=== PATIENT | male | born 1960 | race Caucasian/White ===

== ENCOUNTER 2017-08-05 10:56 | Emergency (ER) | payer MEDICAID ==
[~2017-08-05] VITALS: Ht 180.3 cm; Wt 76.3 kg
[2017-08-05 11:01] VITALS: BP 135/82
--- NOTE | 2017-08-05 11:06 | NUR ---
PT AMBULATES TO CHAIR D
--- NOTE | 2017-08-05 11:10 | NUR ---
57Y/M C/O BLURRY VISSION SINCE WITH HEADACHE; DENIES NVD OR DIZZINESS. HX; DM, HTN. RX; METFORMIN, LISINOPRIL, ASPIRIN. ER MD MADE AWARE OF PT STATUS.
--- NOTE | 2017-08-05 11:14 | NUR ---
Patient being evaluated by physician at bedside.
[2017-08-05 12:20] VITALS: BP 134/78
--- NOTE | 2017-08-05 12:20 | NUR ---
Patient discharged with v/s stable. Written and verbal after care instructions given and explained. Patient verbalized understanding. Ambulatory with steady gait. All questions addressed prior to discharge. Advised to follow up with PMD.
== END 2017-08-05 12:20 | disposition home or self-care (01) ==
LOC: MED 10:56
DX: H53.2 Diplopia (principal); R51 Headache; E11.9 Type 2 diabetes mellitus without complications; I10 Essential (primary) hypertension
CPT/HCPCS: 70450; 82948; 99284

== ENCOUNTER 2017-08-07 06:00 | Emergency (ER) | payer MEDICAID ==
[~2017-08-07] VITALS: Ht 170.2 cm; Wt 76.5 kg
[2017-08-07 06:05] VITALS: BP 163/80
[2017-08-07] MEDS ORDERED: DICYCLOMINE HCL LIQUID 20 MG, ALUMINUM HYD/MAG/SIMETHICONE 30 ML, LIDOCAINE VISCOUS 2% ... PO ONE ×3 (06:30)
[2017-08-07] MEDS ORDERED: ONDANSETRON 4 MG ODT PO ONE (06:50)
[2017-08-07] MEDS ORDERED: KETOROLAC 60 MG/2 ML VIAL IM ONE (06:50)
[2017-08-07 07:31] VITALS: BP 121/70
[2017-08-07] MEDS ORDERED: ASPI81CT89 PO (20:37)
[2017-08-07] MEDS ORDERED: LISI10TA11 PO (20:37)
[2017-08-07] MEDS ORDERED: ONDA8TAB PO (20:37)
[2017-08-07] MEDS ORDERED: ESOM40EC PO (20:37)
[2017-08-07] MEDS ORDERED: ATOR10TA PO (20:37)
[2017-08-07] MEDS ORDERED: FERR325E14 PO (20:37)
[2017-08-07] MEDS ORDERED: GLIP5TAB4 PO (20:37)
== END 2017-08-07 07:32 | disposition home or self-care (01) ==
LOC: MED 06:00
DX: R10.13 Epigastric pain (principal); R11.0 Nausea; E11.9 Type 2 diabetes mellitus without complications; I10 Essential (primary) hypertension
CPT/HCPCS: 96372; 99283; J1885; S0119

== ENCOUNTER 2017-08-07 18:38 | Inpatient (IN) | payer MEDICAID ==
[~2017-08-07] VITALS: Ht 180.3 cm; Wt 76.2 kg
[2017-08-07 18:44] VITALS: BP 151/87
--- NOTE | 2017-08-07 18:48 | NUR ---
EPIGASTRIC PAIN, NON RADIATING. DENIES CP OR SOB. INFORMED TO LET STAFF KNOW IF CONDITION CHANGES.
--- NOTE | 2017-08-07 18:49 | NUR ---
PT IN LOBBY.
[2017-08-07] MEDS ORDERED: KETOROLAC 60 MG/2 ML VIAL IM ONE (19:55)
[2017-08-07] MEDS ORDERED: ATOR10TA PO (20:37)
[2017-08-07] MEDS ORDERED: GLIP5TAB4 PO (20:37)
[2017-08-07] MEDS ORDERED: LISI10TA11 PO (20:37)
[2017-08-07] MEDS ORDERED: ASPI81CT89 PO (20:37)
[2017-08-07] MEDS ORDERED: FERR325E14 PO (20:37)
[2017-08-07] MEDS ORDERED: ONDA8TAB PO (20:37)
[2017-08-07] MEDS ORDERED: ESOM40EC PO (20:37)
[2017-08-07 20:39] LABS: HEMATOCRIT 51.7 % (36-52); HEMOGLOBIN 17.1 g/dL (12.0-18.0); MEAN CORPUSCULAR HEMOGLOBIN 28 pg (27-31); MEAN CORPUSCULAR HGB CONC 33 g/dL (33-37); MEAN CORPUSCULAR VOLUME 85.1 fL (80-94); PLATELET COUNT (AUTO) 205 K/uL (140-450); RED BLOOD CELL COUNT(AUTO) 6.07 MIL/uL (4.20-6.10); RED CELL DISTRIBUTION WIDTH 12.5 % (11.6-13.7); WHITE BLOOD COUNT (AUTO) 14.1 K/uL (4.8-10.8)
[2017-08-07 20:52] LABS: PROTHROMBIN TIME 11.8 secs (10.8-13.4)
[2017-08-07 20:55] LABS: LYMPHOCYTES % (MANUAL) 3 % (20-46); MONOCYTES % (MANUAL) 1 % (5-12)
--- NOTE | 2017-08-07 20:59 | NUR ---
PATIENT TO ER BED 1
[2017-08-07 21:03] LABS: ANION GAP 15.5 (8-16); CARBON DIOXIDE 28.8 mmol/L (21-32); CREATININE 1.2 mg/dL (0.7-1.3); POTASSIUM 4.3 mmol/L (3.5-5.1)
[2017-08-07 21:10] LABS: ALBUMIN 4.4 g/dL (3.4-5.0); TOTAL BILIRUBIN 4.7 mg/dL (0.0-1.0)
[2017-08-07] MEDS ORDERED: NACL 0.9% 1,000 ML IV ONE ×2 (21:15→22:00)
[2017-08-07] MEDS ORDERED: MORPHINE SULFATE 4 MG/ML SYR IVP ONE (21:20)
[2017-08-07 21:24] LABS: BILIRUBIN,URINE 1+ (NEGATIVE); BLOOD, URINE TRACE-I (NEGATIVE); LEUKOCYTE ESTERASE ,URINE NEGATIVE (NEGATIVE); NITRITE, URINE NEGATIVE (NEGATIVE); UGLUCOSE 3+ (NEGATIVE)
--- NOTE | 2017-08-07 21:29 | NUR ---
Dr. Goldstein evaluating patient at bedside.
[2017-08-07 21:32] LABS: COLOR,URINE AMBER (YELLOW)
[2017-08-07 21:41] LABS: APPEARANCE,URINE CLEAR (CLEAR)
[2017-08-07 21:48] LABS: RBC,URINE 0-5 (RARE) /HPF (0-5); WBC,URINE 0-5 (RARE) /HPF (0-5)
[2017-08-07] MEDS ORDERED: ONDANSETRON 4 MG/2 ML VIAL IVP PRN (22:00)
--- NOTE | 2017-08-07 22:02 | NUR ---
ULTRASOUND AT BEDSIDE
--- NOTE | 2017-08-07 22:25 | NUR ---
PT BROUGHT FROM ER IN [facility] FROM [place]. PT REPORT GIVEN AT BEDSIDE. AAO X4. NO S/S OF DISTRESS. PT ON RA. NO SOB. IV LINE NOTED RAC 18G PATENT, INTACT. BED LOWERED CALL LIGHT WITHIN REACH . WILL CONTINUE TO MONITOR.
--- NOTE | 2017-08-07 22:40 | NUR ---
Patient will be admitted to care of DR AMRSHALL. Admited to TELE. Will go to room 111A. Belongings list completed. Report to TOVA CUNHA.
[2017-08-07 22:58] LABS: BARBITURATE, URINE NEGATIVE ng/ml (NEG <=200); BENZODIAZEPINE, URINE NEGATIVE ng/mL (NEG <=200); CANNABINOID, URINE NEGATIVE ng/mL (NEG <=50); COCAINE, URINE NEGATIVE ng/mL (NEG <=300); OPIATE, URINE NEGATIVE ng/mL (NEG <=2000); PHENCYCLIDINE SCREEN,URINE NEGATIVE ng/mL (NEG <=25)
[2017-08-07 23:18] VITALS: BP 169/81
[2017-08-07 23:28] LABS: FREE T4 (FREE THYROXINE) 1.23 ng/dL (0.76-1.46); PHOSPHORUS 4.5 mg/dL (2.5-4.9)
[2017-08-07] MEDS ORDERED: PIPERACILLIN/TAZOBACTAM 3.375 GM VIAL IV ONE (23:40)
--- NOTE | 2017-08-08 | NUR ---
ASSESSED PT VITAL SIGNS AND MEDICATED. DR AT BEDSIDE. WILL CONTINUE TO MONITOR.
[2017-08-08] MEDS: PIPER/TAZO 3.375GM/D5W PREMIX 50 ML IV SCH ×4 (00:07→22:00)
[2017-08-08] MEDS ORDERED: DEXTROSE 50% 50 ML SYR IVP PRN (00:25)
[2017-08-08] MEDS: HYDROcodone/APAP 7.5/325 MG 1 TAB PO PRN ×2 (00:54→18:27)
--- NOTE | 2017-08-08 01:03 | NUR ---
MEDICATED PT FOR PAIN. PT COMPLAINING OF PAIN 10/01. WILL CONTINUE MONITOR.
--- NOTE | 2017-08-08 02:24 | NUR ---
ASSESSED PT. PT SLEEPING AT THIS TIME. NO SOB. NO S/S OF DISTRESS. WILL CONTINUE TO MONITOR.
[2017-08-08] MEDS: MORPHINE SULFATE 4 MG/ML SYR IVP PRN ×5 (02:44→20:11)
[2017-08-08] MEDS ORDERED: PIPERACILLIN/TAZOBACTAM 3.375 GM VIAL IV ONE (03:53)
[2017-08-08 04:00] VITALS: BP 158/88
--- NOTE | 2017-08-08 04:00 | NUR ---
PT ASLEEP NO S/S OF DISTRESS. NO SOB. WILL CONTINUE TO MONITOR.
[2017-08-08] MEDS: INSULIN LISPRO SLIDING SCALE 100 UNITS/ML VIAL SUBQ PRN ×4 (05:56→20:21)
--- NOTE | 2017-08-08 06:00 | NUR ---
PT COMPLAINING OF PAIN. WILL MEDICATE. AND CONTINUE TO MONITOR.
[2017-08-08] MEDS: BLOOD GLUCOSE MONITORING 1 DEV DEV FS SCH ×4 (06:26→20:07)
--- NOTE | 2017-08-08 07:19 | NUR ---
GAVE REPORT TO DAY SHIFT NURSE AT BEDSIDE FOR CONTINUITY OF CARE. PT ASLEEP. NO SOB. NO S/S OF DISTRESS.
--- NOTE | 2017-08-08 07:20 | NUR ---
RECEIVED REPORT FROM ROLL OPERATOR NURSE AT BEDSIDE FOR CONTINUITY OF CARE. PATIENT RESTING IN BED, AROUSABLE. AOX4. BREATHING EVEN AND UNLABORED ON ROOM AIR. PATIENT DENIES PAIN AT THE MOMENT. IV TO R AC 18G, ASYMPTOMATIC, INTACT, AND PATENT, SALINE LOCKED. PATIENT ABLE TO AMBULATE. NO SIGNS OF DISTRESS AT THIS TIME. SAFETY PRECAUTION IN PLACE, BED ON LOWEST SETTING, CALL LIGHT WITHIN REACH. WILL CONTINUE TO MONITOR PATIENT.
[2017-08-08 07:27] LABS: MAGNESIUM 1.8 mg/dL (1.8-2.4); PHOSPHORUS 2.8 mg/dL (2.5-4.9)
[2017-08-08 07:29] LABS: HEMATOCRIT 46.3 % (36-52); HEMOGLOBIN 15.5 g/dL (12.0-18.0); MEAN CORPUSCULAR HEMOGLOBIN 28 pg (27-31); MEAN CORPUSCULAR HGB CONC 33 g/dL (33-37); MEAN CORPUSCULAR VOLUME 84.2 fL (80-94); PLATELET COUNT (AUTO) 169 K/uL (140-450); RED CELL DISTRIBUTION WIDTH 12.4 % (11.6-13.7); WHITE BLOOD COUNT (AUTO) 15.4 K/uL (4.8-10.8)
[2017-08-08 07:32] LABS: ANION GAP 14.1 (8-16); CREATININE 1.1 mg/dL (0.7-1.3); POTASSIUM 4.1 mmol/L (3.5-5.1)
[2017-08-08 08:00] VITALS: BP 133/82
[2017-08-08 08:31] LABS: LYMPHOCYTES % (MANUAL) 3 % (20-46); MONOCYTES % (MANUAL) 2 % (5-12)
[2017-08-08] MEDS: PANTOPRAZOLE 40 MG TABEC PO SCH (08:51)
[2017-08-08] MEDS: LISINOPRIL 10 MG TAB PO SCH (08:51)
[2017-08-08] MEDS: ASPIRIN 81 MG TAB.CHEW PO SCH (08:51)
[2017-08-08] MEDS: DOCUSATE SODIUM 100 MG GELCAP PO SCH ×2 (08:51→20:11)
[2017-08-08] MEDS: FERROUS SULFATE 325 MG TABEC PO SCH (08:51)
[2017-08-08] MEDS: LACTOBACILLUS RHAMNOSUS GG 1 EACH CAP PO SCH (08:51)
--- NOTE | 2017-08-08 08:54 | NUR ---
ADMINISTERED ORDERED MEDICATIONS. PATIENT TOLERATED THEM WELL. FAMILY AT BEDSIDE. FAMILY C/O PAIN, WILL MEDIATE WHEN NEXT SCHEDULE MEDICATION AVAILABLE. BREATHING EVEN AND UNLABORED. NO SIGNS OF DISTRESS AT THIS TIME. SAFETY PRECAUTION IN PLACE, CALL LIGHT WITHIN REACH. WILL CONTINUE TO MONITOR PATIENT.
[2017-08-08] MEDS ORDERED: glipiZIDE 5 MG TAB PO SCH (09:00)
--- NOTE | 2017-08-08 10:01 | NUR ---
PATIENT HAS BEEN SCREENED AND CATEGORIZED MODERATE NUTRITION RISK. PATIENT WILL BE SEEN WITHIN 3-5 DAYS OF ADMISSION. 08/11/17 - 08/13/[address] Addendum: 08/08/17 at [address] DATE CORRECTION: 08/10/17 - 08/12/[address]
--- NOTE | 2017-08-08 11:05 | NUR ---
PT C/O OF PAIN 12/01. PAIN MEDICATION ADMINISTERED. PATIENT TOLERATED IT WELL. BREATHING EVEN AND UNLABORED. NO SIGNS OF DISTRESS AT THIS TIME. SAFETY PRECAUTION IN PLACE, CALL LIGHT WITHIN REACH. WILL CONTINUE TO MONITOR PATIENT.
[2017-08-08] MEDS ORDERED: CALCIUM ACETATE 667 MG TAB PO SCH (11:16)
[2017-08-08 12:00] VITALS: BP 141/86
[2017-08-08] MEDS: ACETAMINOPHEN 325 MG TAB PO PRN (12:09)
--- NOTE | 2017-08-08 12:09 | NUR ---
TEMP 100.5. TYLENOL PRN ADMINISTERED AND COOLING MEASURES IN PLACE, WILL REASSESS AND CONTINUE TO MONITOR PATIENT.
--- NOTE | 2017-08-08 12:20 | NUR ---
DR. DEMARCO IN TO ASSESS AND SPEAK TO THE PATIENT. FAMILY AT BEDSIDE. WILL AWAIT FOR HIS UPDATED ORDERS.
[2017-08-08] MEDS ORDERED: NACL 0.9% 1,000 ML IV SCH (13:10)
--- NOTE | 2017-08-08 13:30 | NUR ---
TEMP 98.9. PATIENT RESTING IN BED WITH FAMILY AT BEDSIDE. BREATHING EVEN AND UNLABORED. NO SIGNS OF DISTRESS AT THIS TIME. SAFETY PRECAUTION IN PLACE, CALL LIGHT WITHIN REACH. WILL CONTINUE TO MONITOR PATIENT.
--- NOTE | 2017-08-08 13:55 | NUR ---
PATIENT AMBULATING WITH STEADY GAIT IN HALLWAY ACCOMPANIED BY DAUGHTER AND . PATIENT SHOWS NO SIGNS OF DISTRESS OR SOB. WILL CONTINUE TO MONITOR PATIENT.
--- NOTE | 2017-08-08 14:22 | NUR ---
DR. CANCINO IN TO SEE THE PATIENT. WILL AWAIT FOR HIS UPDATED ORDERS.
[2017-08-08] MEDS: DEXT 5% / LACT RING 1,000 ML IV SCH ×2 (15:14→22:00)
[2017-08-08 16:00] VITALS: BP 123/68
--- NOTE | 2017-08-08 16:09 | NUR ---
PT C/O OF PAIN 01/01. PAIN MEDICATION ADMINISTERED. PATIENT TOLERATED IT WELL. FAMILY AT BEDSIDE, CONSENT FOR POSSIBLE ECRP WITH MAC WITH DR. CANCINO TOMORROW 08/08 SIGNED. BREATHING EVEN AND UNLABORED. NO SIGNS OF DISTRESS AT THIS TIME. SAFETY PRECAUTION IN PLACE, CALL LIGHT WITHIN REACH. WILL CONTINUE TO MONITOR PATIENT.
--- NOTE | 2017-08-08 18:10 | NUR ---
PT C/O OF PAIN 10/01. PAIN MEDICATION ADMINISTERED. PATIENT TOLERATED IT WELL. BREATHING EVEN AND UNLABORED. NO SIGNS OF DISTRESS AT THIS TIME. SAFETY PRECAUTION IN PLACE, CALL LIGHT WITHIN REACH. WILL CONTINUE TO MONITOR PATIENT.
--- NOTE | 2017-08-08 19:30 | NUR ---
REPORT GIVEN TO SENIOR INTERNAL AUDITOR NURSE AT BEDSIDE FOR CONTINUITY OF CARE. PATIENT IN STABLE CONDITION.
--- NOTE | 2017-08-08 19:30 | NUR ---
PATIENT REPORT RECEIVED FROM MORNING NURSE AT BEDSIDE. PATIENT IS AWAKE ALERT AND ORIENTED. NO SIGNS AND SYMPTOMS OF DISTRESS NOTED. PATIENT IS ON ROOM AIR. IV SITE NOTED ON RIGHT AC, IVF INFUSING WELL. PLAN OF CARE DISCUSSED WITH PATIENT AND FAMILY. QUESTIONS ANSWERED. BED IN LOWEST POSITION, SIDE RAILS UP AND CALL LIGHT WITHIN REACH. WILL CONTINUE TO MONITOR.
[2017-08-08 20:00] VITALS: BP 129/76
--- NOTE | 2017-08-08 21:00 | NUR ---
CALLED PHARMACY TO VERIFY COMPATIBILITY OF ZOSYN AND D5 WITH LR. PHARMACY SAID IT IS NOT RECOMMENDED. WILL PIGGYBACK ZOSYN TO NS.
--- NOTE | 2017-08-08 21:30 | NUR ---
MEDICATION EDUCATION GIVEN. PATIENT VERBALIZED UNDERSTANDING. MEDICATIONS GIVEN ORDERED. PATIENT TOLERATED WELL. WILL CONTINUE TO MONITOR.
[2017-08-09] VITALS: BP 145/81
--- NOTE | 2017-08-09 | NUR ---
CHECKED ON PATIENT. PATIENT IS ASLEEP. NO SIGNS AND SYMPTOMS OF DISTRESS NOTED. BREATHING EVEN AND UNLABORED. WILL CONTINUE TO MONITOR.
--- NOTE | 2017-08-09 02:00 | NUR ---
CHECKED ON PATIENT. PATIENT IS ASLEEP. NO SIGNS AND SYMPTOMS OF DISTRESS NOTED. BREATHING EVEN AND UNLABORED. WILL CONTINUE TO MONITOR.
[2017-08-09] MEDS: DEXT 5% / LACT RING 1,000 ML IV SCH ×2 (03:45→10:25)
--- NOTE | 2017-08-09 04:00 | NUR ---
CHECKED ON PATIENT. PATIENT IS ASLEEP. NO SIGNS AND SYMPTOMS OF DISTRESS NOTED. BREATHING EVEN AND UNLABORED. WILL CONTINUE TO MONITOR.
[2017-08-09] MEDS: PIPER/TAZO 3.375GM/D5W PREMIX 50 ML IV SCH ×3 (04:54→21:08)
[2017-08-09] MEDS: MORPHINE SULFATE 4 MG/ML SYR IVP PRN ×3 (05:01→21:01)
[2017-08-09] MEDS: INSULIN LISPRO SLIDING SCALE 100 UNITS/ML VIAL SUBQ PRN ×4 (05:40→21:17)
--- NOTE | 2017-08-09 06:30 | NUR ---
PATIENT'S DAUGHTER CALLED. UPDATED HER ON HER FATHER'S CONDITION
[2017-08-09] MEDS: BLOOD GLUCOSE MONITORING 1 DEV DEV FS SCH ×4 (06:43→21:14)
[2017-08-09 07:08] LABS: HEMATOCRIT 42.4 % (36-52); HEMOGLOBIN 14.2 g/dL (12.0-18.0); MEAN CORPUSCULAR HEMOGLOBIN 29 pg (27-31); MEAN CORPUSCULAR HGB CONC 34 g/dL (33-37); MEAN CORPUSCULAR VOLUME 85.5 fL (80-94); PLATELET COUNT (AUTO) 144 K/uL (140-450); RED BLOOD CELL COUNT(AUTO) 4.96 MIL/uL (4.20-6.10); RED CELL DISTRIBUTION WIDTH 12.8 % (11.6-13.7); WHITE BLOOD COUNT (AUTO) 16.3 K/uL (4.8-10.8)
[2017-08-09 07:14] LABS: ANION GAP 10.6 (8-16); CARBON DIOXIDE 28.4 mmol/L (21-32); CREATININE 1.3 mg/dL (0.7-1.3)
--- NOTE | 2017-08-09 07:15 | NUR ---
PATIENT REPORT GIVEN TO MORNING NURSE AT BEDSIDE FOR CONTINUITY OF CARE. PATIENT IS IN STABLE CONDITION.
--- NOTE | 2017-08-09 07:15 | NUR ---
RECEIVED BEDSIDE REPORT FROM NIGHTSHIFT NURSE AT BEDSIDE. PATIENT IS ALERT AND ORIENTED X4. PATIENT DOES NOT PRESENT WITH PAIN AT THIS TIME. PATIENT IN SEMI-FOWLERS POSITION WITH NO SIGNS OF RESPIRATORY DISTRESS OR RESPIRATORY DEPRESSION. PATIENT HAS AN IV NOTED ON HIS RIGHT AC 18G. UPDATED BOARD IN PATIENT'S ROOM. PUT CALL LIGHT WITHIN REACH. PATIENT AWARE OF HIS PROCEDURE TODAY. ENCOURAGED PATIENT TO CALL IF HE NEEDS HELP WITH ANYTHING. WILL CONTINUE TO MONITOR PATIENT.
[2017-08-09 07:32] LABS: MAGNESIUM 1.8 mg/dL (1.8-2.4); PHOSPHORUS 1.8 mg/dL (2.5-4.9)
[2017-08-09 07:43] LABS: LYMPHOCYTES % (MANUAL) 6 % (20-46); MONOCYTES % (MANUAL) 4 % (5-12)
[2017-08-09 08:00] VITALS: BP 143/80
[2017-08-09] MEDS: DOCUSATE SODIUM 100 MG GELCAP PO SCH ×2 (08:59→21:05)
[2017-08-09] MEDS: LACTOBACILLUS RHAMNOSUS GG 1 EACH CAP PO SCH (09:00)
--- NOTE | 2017-08-09 09:00 | NUR ---
PATIENT RESTING AT THIS TIME. NO RESPIRATORY DISTRESS OR RESPIRATORY DEPRESSION. WILL CONTINUE TO MONITOR PATIENT.
[2017-08-09] MEDS: PANTOPRAZOLE 40 MG TABEC PO SCH (09:01)
[2017-08-09] MEDS: SENNA 8.6 MG TAB PO SCH (09:01)
[2017-08-09] MEDS: LISINOPRIL 10 MG TAB PO SCH (09:01)
[2017-08-09] MEDS: ASPIRIN 81 MG TAB.CHEW PO SCH (09:01)
[2017-08-09] MEDS: FERROUS SULFATE 325 MG TABEC PO SCH (09:02)
[2017-08-09] MEDS: LACTATED RINGERS 1,000 ML IV SCH (11:00)
--- NOTE | 2017-08-09 11:50 | NUR ---
PATIENT RESTING AT THIS TIME. PATIENT'S FAMILY MEMBERS ARE AT BEDSIDE. NO COMPLAINTS OF PAIN AT THIS TIME. NO RESPIRATORY DISTRESS OR RESPIRATORY DEPRESSION. WILL CONTINUE TO MONITOR PATIENT.
[2017-08-09] MEDS: HYDROcodone/APAP 7.5/325 MG 1 TAB PO PRN ×2 (13:40→23:53)
--- NOTE | 2017-08-09 14:09 | NUR ---
PATIENT RESTING IN BED. PATIENT'S FAMILY IS AT BEDSIDE. NO RESPIRATORY DEPRESSION OR DISTRESS. WILL CONTINUE TO MONITOR PATIENT.
--- NOTE | 2017-08-09 14:45 | NUR ---
PATIENT LEFT WITH O.R. NURSES VIA BED. PATIENT LEFT IN STABLE CONDITION.
[2017-08-09] MEDS ORDERED: PROPOFOL 200 MG/20 ML VIAL IV ONE (15:34)
[2017-08-09] MEDS ORDERED: fentaNYL 0.05 MG/ML VIAL ONE (15:36)
[2017-08-09] MEDS ORDERED: MIDAZOLAM 2 MG/2 ML VIAL ONE (15:36)
[2017-08-09 16:24] LABS: ALBUMIN 2.9 g/dL (3.4-5.0); BILIRUBIN,DIRECT 3.3 mg/dL (0.0-0.3); TOTAL BILIRUBIN 5.4 mg/dL (0.0-1.0)
--- NOTE | 2017-08-09 17:15 | NUR ---
PATIENT ARRIVED BACK FROM THE O.R. IN STABLE CONDITION. RECEIVED REPORT AT BEDSIDE. PATIENT VITAL SIGNS IN STABLE CONDITION.
[2017-08-09 17:30] VITALS: BP 146/81
--- NOTE | 2017-08-09 19:46 | NUR ---
GAVE REPORT TO NIGHTSHIFT NURSE AT BEDSIDE. PATIENT IN STABLE CONDITION.
[2017-08-09 20:30] VITALS: BP 161/79
--- NOTE | 2017-08-09 20:30 | NUR ---
SEEN PT AWAKE, ALERT IN BED SPEAKS MOSTLY CZECH. FAMILY AT BEDSIDE. INITIAL ASSESSMENT DONE. VITAL SIGNS CHECKED. PT HAS WEYN=518.1 PT STATES HE HAS PAIN. WILL MEDICATE FOR PAIN ORDERED. SAFETY ENSURED. CALL LIGHT W/IN REACH.
--- NOTE | 2017-08-09 21:01 | NUR ---
ICE PACK APPLIED ON PT'S UNDERARM. EXTRA COVER (BLANKET) REMOVED. INSTRUCTED FAMILY NOT TO COVER PT FOR NOW SINCE PT HAS FEVER. FAMILY VERBALIZED UNDERSTANDING. PT MEDICATED FOR PAIN ORDERED. TEACHINGS PROVIDED. PT'S DAUGHTER SAID "CAN YOU MAKE SURE TO ASK MY DAD IF HE'S IN PAIN BECAUSE HE WON'T CALL FOR PAIN MEDICINE." REASSURED PT'S DAUGHTER THAT PT WILL ME MEDICATED FOR HIS PAIN. BLOOD SUGAR CHECKED:171. WILL COVER W/ INSULIN. PT DENIES ANY OTHER NEEDS.
[2017-08-09] MEDS: ACETAMINOPHEN 325 MG TAB PO PRN (21:02)
--- NOTE | 2017-08-09 22:10 | NUR ---
SEEN PT ASLEEP. TEMP RECHECKED:100.7 ICE PACK REPLACED. PT WANTS TO USE BATHROOM. PT GIVEN URINAL TO USE. URINAL EMPTIED W/ 400ML DARK YELLOW URINE. PT DENIES ANY NEEDS. BED ALARM ON.
--- NOTE | 2017-08-09 23:53 | NUR ---
SEEN PT AWAKE. PT'S TEMP RECHECKED:98.7 BP RECHECKED:161/78. PT STATES HE HAS PAIN. PT GIVEN NORCO ORDERED. TEACHINGS PROVIDED. WILL CALL MD REGARDING PT'S BP.
[2017-08-09 23:56] VITALS: BP 161/78
--- NOTE | 2017-08-10 00:06 | NUR ---
PT'S DAUGHTER CALLED ASKING HOW PT IS DOING. UPDATED PT ON PT'S CONDITION.
--- NOTE | 2017-08-10 00:08 | NUR ---
CALLED AND SPOKE TO DR KENDRICK REGARDING PT'S BP. SHE SAID, "I'LL GO TAKE A LOOK ON PT'S MEDICATION."
--- NOTE | 2017-08-10 00:42 | NUR ---
SPOKE TO DR KENDRICK IF SHE CHECKED ON PT'S MEDS ALREADY. SHE SAID "HIS BP IS NOT THAT CRITICAL BUT I'LL TAKE A LOOK ON HIS MEDS RIGHT NOW." WILL AWAIT FOR ORDERS.
[2017-08-10] MEDS ORDERED: LISINOPRIL 10 MG TAB PO SCH (00:45)
[2017-08-10] MEDS: LACTATED RINGERS 1,000 ML IV SCH ×4 (01:05→18:20)
[2017-08-10] MEDS: MORPHINE SULFATE 4 MG/ML SYR IVP PRN ×4 (01:05→18:20)
[2017-08-10] MEDS: HYDROcodone/APAP 7.5/325 MG 1 TAB PO PRN ×3 (03:55→22:03)
[2017-08-10 04:00] VITALS: BP 157/83
--- NOTE | 2017-08-10 04:05 | NUR ---
PT ASLEEP. VITAL SIGNS CHECKED AND WNL. SAFETY ENSURED.
[2017-08-10] MEDS: PIPER/TAZO 3.375GM/D5W PREMIX 50 ML IV SCH ×3 (05:23→21:39)
--- NOTE | 2017-08-10 06:35 | NUR ---
AWAKEN PT. BLOOD SUGAR CHECKED;174. WILL COVER W/ INSULIN.
[2017-08-10] MEDS: BLOOD GLUCOSE MONITORING 1 DEV DEV FS SCH ×4 (06:47→21:29)
[2017-08-10] MEDS: INSULIN LISPRO SLIDING SCALE 100 UNITS/ML VIAL SUBQ PRN ×2 (06:47→21:33)
--- NOTE | 2017-08-10 07:10 | NUR ---
REPORT GIVEN TO DAYSHIFT NURSE.
--- NOTE | 2017-08-10 07:11 | NUR ---
RECEIVED REPORT FROM ORTHOPHOTO TECH/DRAFTSMAN NURSE AT BEDSIDE FOR CONTINUITY OF CARE. PATIENT RESTING IN BED, AROUSABLE. AOX4. BREATHING EVEN AND UNLABORED ON ROOM AIR. PATIENT DENIES PAIN AT THE MOMENT. IV TO R AC 18G, ASYMPTOMATIC, INTACT, AND PATENT, SALINE LOCKED. PATIENT ABLE TO AMBULATE. NO SIGNS OF DISTRESS AT THIS TIME. SAFETY PRECAUTION IN PLACE, BED ON LOWEST SETTING, CALL LIGHT WITHIN REACH. WILL CONTINUE TO MONITOR PATIENT.
[2017-08-10 07:15] LABS: BASOPHILS # (AUTO) 0.1 K/uL (0.00-0.22); BASOPHILS % (AUTO) 0.6 % (0.0-2.0); EOSINOPHILS % (AUTO) 0.1 % (0.0-4.0); HEMATOCRIT 37.5 % (36-52); HEMOGLOBIN 12.7 g/dL (12.0-18.0); LYMPHOCYTES # (AUTO) 0.3 K/uL (2.0-11.5); LYMPHOCYTES % (AUTO) 2.6 % (20.5-51.1); MEAN CORPUSCULAR HEMOGLOBIN 28 pg (27-31); MEAN CORPUSCULAR HGB CONC 34 g/dL (33-37); MEAN CORPUSCULAR VOLUME 83.2 fL (80-94); MONOCYTES # (AUTO) 0.5 K/uL (0.8-1.0); MONOCYTES % (AUTO) 4.6 % (1.7-9.3); NEUTROPHILS # (AUTO) 9.8 K/uL (1.8-7.7); NEUTROPHILS % (AUTO) 92.1 % (42.2-75.2); PLATELET COUNT (AUTO) 149 K/uL (140-450); RED BLOOD CELL COUNT(AUTO) 4.51 MIL/uL (4.20-6.10); RED CELL DISTRIBUTION WIDTH 13.4 % (11.6-13.7); WHITE BLOOD COUNT (AUTO) 10.7 K/uL (4.8-10.8)
[2017-08-10 07:35] LABS: MAGNESIUM 2.2 mg/dL (1.8-2.4); PHOSPHORUS 1.2 mg/dL (2.5-4.9)
[2017-08-10 07:38] LABS: ANION GAP 11.7 (8-16); CARBON DIOXIDE 25.8 mmol/L (21-32); CREATININE 0.8 mg/dL (0.7-1.3); POTASSIUM 3.5 mmol/L (3.5-5.1)
[2017-08-10 08:00] VITALS: BP 168/95
[2017-08-10] MEDS: DOCUSATE SODIUM 100 MG GELCAP PO SCH ×2 (08:59→21:12)
[2017-08-10] MEDS: ASPIRIN 81 MG TAB.CHEW PO SCH (08:59)
[2017-08-10] MEDS: LACTOBACILLUS RHAMNOSUS GG 1 EACH CAP PO SCH (09:00)
[2017-08-10] MEDS: FERROUS SULFATE 325 MG TABEC PO SCH (09:00)
[2017-08-10] MEDS: PANTOPRAZOLE 40 MG TABEC PO SCH (09:00)
[2017-08-10] MEDS: SENNA 8.6 MG TAB PO SCH (09:00)
--- NOTE | 2017-08-10 09:00 | NUR ---
ADMINISTERED ORDERED MEDICATION AND MORPHINE PRN FOR PT'S PAIN. PATIENT TOLERATED THEM WELL. FAMILY AT BEDSIDE, PLAN OF CARE DISCUSSED WITH PATIENT AND FAMILY MEMBERS. THEY VERBALIZED UNDERSTANDING. NO SIGNS OF DISTRESS NOTED. PATIENT MEDICATED FOR PAIN. SAFETY PRECAUTION IN PLACE, CALL LIGHT WITHIN REACH, WILL CONTINUE TO MONITOR PATIENT.
[2017-08-10] MEDS: LISINOPRIL 10 MG TAB PO SCH (09:01)
--- NOTE | 2017-08-10 10:55 | NUR ---
DR. DEMARCO INFORMED OF PATIENT'S LOW CALCIUM AND LOW PHOSPHORUS LEVEL. WILL AWAIT FOR HIS NEW ORDERS.
[2017-08-10] MEDS ORDERED: SODIUM PHOS / POTASSIUM PHOS 1 PKT PDR PO SCH (11:08)
--- NOTE | 2017-08-10 12:05 | NUR ---
ADMINISTERED ORDERED MEDICATION. PATIENT TOLERATED IT WELL. FAMILY AT BEDSIDE. BLOOD SUGAR 145, NO COVERAGE NEEDED. NO SIGNS OF DISTRESS NOTED. PATIENT STATED PAIN IS "TOLERABLE", NO NEED FOR PAIN MEDICATION AT THIS TIME. SAFETY PRECAUTION IN PLACE, CALL LIGHT WITHIN REACH, WILL CONTINUE TO MONITOR PATIENT.
--- NOTE | 2017-08-10 12:20 | NUR ---
PATIENT'S BLOOD PRESSURE 168/90, HR 86. INFORMED DR. DEMARCO, WILL AWAIT HIS NEW ORDERS. PATIENT CURRENTLY RESTING IN BED, FAMILY AT BEDSIDE. NO SIGNS OF DISTRESS NOTED. PATIENT MEDICATED FOR PAIN. SAFETY PRECAUTION IN PLACE, CALL LIGHT WITHIN REACH, WILL CONTINUE TO MONITOR PATIENT.
[2017-08-10] MEDS ORDERED: LISINOPRIL 20 MG TAB PO SCH (13:38)
--- NOTE | 2017-08-10 14:35 | NUR ---
ADMINISTERED ORDERED MEDICATION AND MORPHINE PRN FOR PT'S PAIN. PATIENT TOLERATED THEM WELL. FAMILY AT BEDSIDE, NO SIGNS OF DISTRESS NOTED. PATIENT MEDICATED FOR PAIN. SAFETY PRECAUTION IN PLACE, CALL LIGHT WITHIN REACH, WILL CONTINUE TO MONITOR PATIENT.
[2017-08-10 16:00] VITALS: BP 170/90
--- NOTE | 2017-08-10 16:05 | NUR ---
PATIENT'S BLOOD PRESSURE 170/90, HR 92. INFORMED DR. DEMARCO, WILL AWAIT HIS NEW ORDERS. PATIENT CURRENTLY RESTING IN BED, FAMILY AT BEDSIDE. NO SIGNS OF DISTRESS NOTED. PATIENT C/O PAIN, WILL ASSESS AND MEDICATE. SAFETY PRECAUTION IN PLACE, CALL LIGHT WITHIN REACH, WILL CONTINUE TO MONITOR PATIENT.
[2017-08-10] MEDS ORDERED: METOPROLOL 25 MG TAB PO SCH (16:26)
[2017-08-10] MEDS: SODIUM PHOS / POTASSIUM PHOS 1 PKT PDR PO SCH ×2 (16:46→21:14)
--- NOTE | 2017-08-10 16:46 | NUR ---
ADMINISTERED ORDERED MEDICATION AND NORCO PRN FOR PT'S PAIN. PATIENT TOLERATED THEM WELL. FAMILY AT BEDSIDE, NO SIGNS OF DISTRESS NOTED. PATIENT MEDICATED FOR PAIN. SAFETY PRECAUTION IN PLACE, CALL LIGHT WITHIN REACH, WILL CONTINUE TO MONITOR PATIENT.
--- NOTE | 2017-08-10 17:10 | NUR ---
PATIENT AMBULATED 100 FEET OUT OF HIS ROOM AND BACK INTO HIS ROOM ACCOMPANIED BY HIS FAMILY MEMBERS. PATIENT SHOWS NO SIGN OF DISTRESS. WILL CONTINUE TO MONITOR PATIENT.
--- NOTE | 2017-08-10 17:35 | NUR ---
DR. DORANTES IN TO ASSESS AND SPEAK TO THE PATIENT. LAWRENCE CONNOR PLANNED FOR TOMORROW AT 3:30. CONSENT OBTAINED. FAMILY AT BEDSIDE. FAMILY AND PATIENT VERBALIZED UNDERSTANDING FOR THE PLANNED PROCEDURE TOMORROW.
--- NOTE | 2017-08-10 18:33 | NUR ---
ADMINISTERED ORDERED MEDICATION AND MORPHINE PRN FOR PT'S 10/10 ABD AND BACK PAIN. PATIENT TOLERATED THEM WELL. FAMILY AT BEDSIDE, NO SIGNS OF DISTRESS NOTED. PATIENT MEDICATED FOR PAIN. PATIENT BP 170/91, HR 88. DR. DEMARCO AWARE. NEW ORDER IN FOR KPAD FOR BACK PAIN, NURSING GLUER MACHINE OPERATOR WAS CALLED ABOUT KPAD. SAFETY PRECAUTION IN PLACE, CALL LIGHT WITHIN REACH, WILL CONTINUE TO MONITOR PATIENT.
--- NOTE | 2017-08-10 19:18 | NUR ---
PATIENT REPORT GIVEN TO SPICE CLEANER NURSE AT BEDSIDE FOR CONTINUITY OF CARE. PATIENT IN STABLE CONDITION. ENDORSED KPAD INQUIRY TO SPICE CLEANER NURSE. ALSO SPOKE TO NURSING GLOBAL LOGISTICS ANALYST TO REMIND HER.
--- NOTE | 2017-08-10 19:19 | NUR ---
RECD. RESTING IN BED, AWAKE, A/OX4. RESPIRATION EVEN AND UNLABORED. IV OF LR AT 150 ML/HR INFUSING, RIGHT AC G18. ABDOMEN SLIGHTLY FIRM, STATED ABLE TO PASS GAS, NO BM YET, WILL GIVE COLACE TONIGHT. ABLE TO AMBULATE INDEPENDENTLY TO BR. PLAN OF CARE FOR THE SHIFT DISCUSSED WITH PATIENT AND FAMILY. VERBALIZED UNDERSTANDING. DENIES PAIN AT THIS TIME.
--- NOTE | 2017-08-10 20:00 | NUR ---
Patient's Plan of Care was discussed and reviewed with DISPLAY TRIMMER: INNA SHARP
[2017-08-10] MEDS: METOPROLOL 25 MG TAB PO SCH (21:13)
[2017-08-10] MEDS: CALCIUM CARB/VIT-D 500 MG/200 IU 1 TAB PO SCH (21:13)
--- NOTE | 2017-08-10 21:14 | NUR ---
DUE PO MEDICATIONS GIVEN. SNACK GIVEN FOR THE NIGHT BUT REFUSED TO EAT, WANTS TO EAT LATER.
--- NOTE | 2017-08-10 21:30 | NUR ---
K PAD APPLIED AT THE BACK FOR BACK PAIN.
--- NOTE | 2017-08-10 23:30 | NUR ---
NPO PAST MIDNIGHT, VERBALIZED UNDERSTANDING.
[2017-08-10] MEDS ORDERED: TEMAZEPAM 15 MG CAP PO PRN (23:45)
[2017-08-11] VITALS: BP 144/82
--- NOTE | 2017-08-11 00:30 | NUR ---
STATED K PAD DOES NOT HELP, STILL TOO HOT EVEN IF COVERED WITH BEDSHEET. TAKEN OFF PATIENT.
[2017-08-11] MEDS: LACTATED RINGERS 1,000 ML IV SCH ×3 (00:45→12:44)
--- NOTE | 2017-08-11 01:13 | NUR ---
UNABLE TO SLEEP, MEDICATED WITH RESTORIL ORDERED.
--- NOTE | 2017-08-11 02:13 | NUR ---
SLEEPING IN BED.
--- NOTE | 2017-08-11 03:30 | NUR ---
AWAKE, STATED SLEEP ONLY A LITTLE.
[2017-08-11 03:45] VITALS: BP 162/79
[2017-08-11] MEDS: MORPHINE SULFATE 4 MG/ML SYR IVP PRN ×3 (03:55→12:44)
--- NOTE | 2017-08-11 04:25 | NUR ---
SLEEPING COMFORTABLY IN BED, AFTER PAIN MEDICATION.
[2017-08-11] MEDS: PIPER/TAZO 3.375GM/D5W PREMIX 50 ML IV SCH ×3 (05:18→21:43)
--- NOTE | 2017-08-11 05:50 | NUR ---
SPOKE WITH DR. DORANTES, INQUIRED PATIENT IS NOT YET IN THE DESK TOP, NO SCHEDULE FOR LAP CHOLECYSTECTOMY, WILL CALL OR FOR SCHEDULING.
[2017-08-11] MEDS: BLOOD GLUCOSE MONITORING 1 DEV DEV FS SCH ×4 (06:00→21:47)
--- NOTE | 2017-08-11 06:00 | NUR ---
INFORMED DR. MALCOLM, PATIENT BS - 159, IF PATIENT CAN BE GIVEN INSULIN COVERAGE. STATED NO COVERAGE.
[2017-08-11 06:38] LABS: BASOPHILS % (AUTO) 0.1 % (0.0-2.0); EOSINOPHILS % (AUTO) 0.3 % (0.0-4.0); HEMATOCRIT 36.5 % (36-52); HEMOGLOBIN 12.5 g/dL (12.0-18.0); LYMPHOCYTES # (AUTO) 0.4 K/uL (2.0-11.5); MEAN CORPUSCULAR HEMOGLOBIN 28 pg (27-31); MEAN CORPUSCULAR HGB CONC 34 g/dL (33-37); MONOCYTES # (AUTO) 0.9 K/uL (0.8-1.0); NEUTROPHILS # (AUTO) 9.6 K/uL (1.8-7.7); NEUTROPHILS % (AUTO) 87.6 % (42.2-75.2); PLATELET COUNT (AUTO) 169 K/uL (140-450); RED CELL DISTRIBUTION WIDTH 13.1 % (11.6-13.7); WHITE BLOOD COUNT (AUTO) 10.9 K/uL (4.8-10.8)
--- NOTE | 2017-08-11 07:15 | NUR ---
ENDORSED TO AM NURSE FOR CONTINUITY OF CARE, FOR LAP CHOLECYSTECTOMY TODAY. CONDITION REMAIN STABLE.
--- NOTE | 2017-08-11 07:16 | NUR ---
RECEIVED REPORT FROM DUST HANDLER NURSE AT BEDSIDE FOR CONTINUITY OF CARE. PATIENT RESTING IN BED, AROUSABLE. AOX4. BREATHING EVEN AND UNLABORED ON ROOM AIR. PATIENT DENIES PAIN AT THE MOMENT. IV TO R AC 18G, ASYMPTOMATIC, INTACT, AND PATENT, SALINE LOCKED. PATIENT ABLE TO AMBULATE. NO SIGNS OF DISTRESS AT THIS TIME. SAFETY PRECAUTION IN PLACE, BED ON LOWEST SETTING, CALL LIGHT WITHIN REACH. WILL CONTINUE TO MONITOR PATIENT.
[2017-08-11 07:39] LABS: ANION GAP 12.5 (8-16); CARBON DIOXIDE 24.3 mmol/L (21-32); CREATININE 0.7 mg/dL (0.7-1.3); POTASSIUM 3.8 mmol/L (3.5-5.1)
[2017-08-11 07:42] LABS: MAGNESIUM 2.2 mg/dL (1.8-2.4); PHOSPHORUS 1.3 mg/dL (2.5-4.9)
[2017-08-11 08:00] VITALS: BP 175/96
[2017-08-11] MEDS: SODIUM PHOS / POTASSIUM PHOS 1 PKT PDR PO SCH ×4 (08:30→21:46)
[2017-08-11] MEDS: SENNA 8.6 MG TAB PO SCH (08:30)
[2017-08-11] MEDS: LACTOBACILLUS RHAMNOSUS GG 1 EACH CAP PO SCH (08:30)
--- NOTE | 2017-08-11 08:30 | NUR ---
ADMINISTERED ORDERED MEDICATIONS. PATIENT TOLERATED THEM WELL. PATIENT ALSO MEDICATED FOR 10/10 ABD AND BACK PAIN. FAMILY AT BEDSIDE. NO SIGN OF DISTRESS NOTED, PATIENT MEDICATED FOR PAIN. SAFETY PRECAUTION IN PLACE, CALL LIGHT WITHIN REACH, WILL CONTINUE TO MONITOR PATIENT.
[2017-08-11] MEDS: PANTOPRAZOLE 40 MG TABEC PO SCH (08:31)
[2017-08-11] MEDS: LISINOPRIL 10 MG TAB PO SCH (08:31)
[2017-08-11] MEDS: METOPROLOL 25 MG TAB PO SCH ×2 (08:31→21:45)
[2017-08-11] MEDS: DOCUSATE SODIUM 100 MG GELCAP PO SCH ×2 (08:31→21:45)
[2017-08-11] MEDS: FERROUS SULFATE 325 MG TABEC PO SCH (08:31)
[2017-08-11] MEDS: CALCIUM CARB/VIT-D 500 MG/200 IU 1 TAB PO SCH ×2 (08:32→21:45)
[2017-08-11] MEDS: ASPIRIN 81 MG TAB.CHEW PO SCH (08:32)
[2017-08-11] MEDS: HYDROcodone/APAP 7.5/325 MG 1 TAB PO PRN (09:45)
--- NOTE | 2017-08-11 09:45 | NUR ---
PATIENT MEDICATED FOR 6/10 ABD AND BACK PAIN. FAMILY AT BEDSIDE. NO SIGN OF DISTRESS NOTED, BREATHING EVEN AND UNLABORED. PATIENT MEDICATED FOR PAIN. SAFETY PRECAUTION IN PLACE, CALL LIGHT WITHIN REACH, WILL CONTINUE TO MONITOR PATIENT.
[2017-08-11 11:15] LABS: ALBUMIN 2.5 g/dL (3.4-5.0); BILIRUBIN,DIRECT 7.1 mg/dL (0.0-0.3); TOTAL BILIRUBIN 9.2 mg/dL (0.0-1.0)
--- NOTE | 2017-08-11 12:43 | NUR ---
ADMINISTERED ORDERED MEDICATION. PATIENT TOLERATED THEM WELL. FAMILY AT BEDSIDE. BLOOD SUGAR 167, NO COVERAGE GIVEN BECAUSE PATIENT IS NPO. PATIENT ALSO MEDICATED FOR 10/10 ABD AND BACK PAIN. NO SIGNS OF DISTRESS NOTED. BREATHING EVEN AND UNLABORED. SAFETY PRECAUTION IN PLACE, CALL LIGHT WITHIN REACH, WILL CONTINUE TO MONITOR PATIENT.
--- NOTE | 2017-08-11 15:02 | NUR ---
08/11/17 RD INITIAL ASSESSMENT COMPLETED PLEASE REFER TO NUTRITION ASSESSMENT UNDER CARE ACTIVITY FOR ESTIMATED NUTRITIONAL NEEDS. 1. CONTINUE NPO MEDICALLY APPROPRIATE 2. IF AND WHEN IT IS MEDICALLY APPROPRIATE, ADVANCE TO A CCHO 60 GM AND CARDIAC DIET. 3. PROVIDED PT WITH PANCREATITIS NUTRITION THERAPY. 4. RD TO FOLLOW-UP 3-5 DAYS, MODERATE RISK ARLENE REYNOLDS RD
[2017-08-11] MEDS: BUPIVACAINE-MPF 0.25% 30 ML VIAL INJ ONE ×2 (15:18→18:15)
--- NOTE | 2017-08-11 15:20 | NUR ---
RECEIVED PHONE CALL FROM SURGERY, DR. DORANTES WILL NOT BE DOING THE PATIENT'S LAP CHOLY, DR. ROSE WILL BE DOING IT AT 1530. PATIENT INFORMED OF THIS FACT, NEW CONSENT FORM OBTAINED. PATIENT IN STABLE CONDITION, NO SIGNS OF DISTRESS OR SOB NOTED. PATIENT STATES ABD AND BACK PAIN 10/01, REFUSED PAIN MEDICATION AT THE MOMENT IN PREPARATION FOR SURGERY. PATIENT NPO SINCE MIDNIGHT OF 08/11/17. SAFETY PRECAUTION IN PLACE, CALL LIGHT WITHIN REACH, WILL CONTINUE TO MONITOR PATIENT AND WAIT FOR OR NURSES COME TO TAKE PATIENT TO SURGERY.
--- NOTE | 2017-08-11 15:45 | NUR ---
2 SURGERY RNS CAME AND WHEELED THE PATIENT TO SURGERY VIA BED. PATIENT IN STABLE CONDITION.
[2017-08-11] MEDS ORDERED: DESFLURANE 240 ML BTL INH ONE (15:46)
[2017-08-11] MEDS ORDERED: SUCCINYLCHOLINE CHLORIDE 200 MG/10 ML VIAL IVP ONE (15:46)
[2017-08-11] MEDS ORDERED: GLYCOPYRROLATE 0.2 MG/ML VIAL ONE (15:46)
[2017-08-11] MEDS ORDERED: NEOSTIGMINE 1:1000 10 MG/10 ML VIAL ONE (15:46)
[2017-08-11] MEDS ORDERED: DEXAMETHASONE 4 MG/ML VIAL ONE (15:46)
[2017-08-11] MEDS ORDERED: ROCURONIUM 50 MG/5 ML VIAL IV ONE (15:46)
[2017-08-11] MEDS ORDERED: LIDOCAINE 2% 100 MG/5 ML SYR IVP ONE (15:46)
[2017-08-11] MEDS ORDERED: PROPOFOL 200 MG/20 ML VIAL IV ONE (15:46)
[2017-08-11] MEDS ORDERED: KETOROLAC 30 MG/ML VIAL ONE (15:46)
[2017-08-11] MEDS ORDERED: MIDAZOLAM 2 MG/2 ML VIAL ONE (15:57)
[2017-08-11] MEDS ORDERED: fentaNYL 0.05 MG/ML VIAL ONE (15:57)
[2017-08-11] MEDS ORDERED: ONDANSETRON 4 MG/2 ML VIAL IVP PRN (16:25)
[2017-08-11] MEDS ORDERED: HYDROmorphone 1 MG/ML AMP IVP PRN (16:25)
[2017-08-11] MEDS ORDERED: BLOOD GLUCOSE MONITORING 1 DEV DEV FS SCH (16:30)
--- NOTE | 2017-08-11 17:17 | NUR ---
CHART REVIEW DONE.
[2017-08-11] MEDS ORDERED: THROMBIN KIT 20 MU VIAL TP ONE (17:40)
[2017-08-11] MEDS ORDERED: ACETAMINOPHEN 120 MG SUPP RC ONE (17:41)
[2017-08-11 18:45] VITALS: BP 158/83
--- NOTE | 2017-08-11 18:45 | NUR ---
PATIENT ARRIVED BACK ON FLOOR ACCOMPANIED BY 2 ASSISTANT ACCOUNT EXECUTIVE AND AND DAUGHTER. PATIENT AWAKE AND ALERT. VITAL SIGNS WNL. PATIENT IS S/P LAP CHOLY WITH DR. ROSE, 4 BANDAGES WITH DRAINAGE ON ONE THAT WAS CIRCLED BY OR NURSE, [place]. SAFETY PRECAUTION IN PLACE, CALL LIGHT WITHIN REACH, WILL CONTINUE TO MONITOR PATIENT.
--- NOTE | 2017-08-11 19:22 | NUR ---
REPORT GIVEN TO PASTE UP ARTIST APPRENTICE NURSE AT BEDSIDE FOR CONTINUITY OF CARE. PATIENT IN STABLE CONDITION, AT BEDSIDE.
--- NOTE | 2017-08-11 19:30 | NUR ---
RECEIVED PATIENT REPORT AT BEDSIDE. PATIENT AWAKE, ALERT AND ORIENTED. NO S/S OF DISTRESS. PATIENT ON ROOM AIR. NO SOB. NO C/O PAIN AT THIS TIME. 4 INCISIONS COVERED WITH BANDAGES NOTED TO THE ABD. DRESSINGS CLEAN, DRY AND INTACT. IV LINE NOTED TO THE RIGHT AC WITH IVF INFUSING WELL. BED LOWERED WITH CALL LIGHT WITHIN REACH. WILL CONTINUE TO MONITOR
[2017-08-11 20:00] VITALS: BP 159/82
--- NOTE | 2017-08-11 20:31 | NUR ---
PT GIVEN INCENTIVE SPIROMETER. FAMILY AT BEDSIDE INTERPRETED. PT DID FAIR EFFORT. 500CC
--- NOTE | 2017-08-11 21:43 | NUR ---
ADMINISTERED SCHEDULED MEDICATIONS. PATIENT TOLERATED WELL. FAMILY MEMBERS PRESENT AT BEDSIDE
[2017-08-11] MEDS: INSULIN LISPRO SLIDING SCALE 100 UNITS/ML VIAL SUBQ PRN (21:59)
[2017-08-12] MEDS: LACTATED RINGERS 1,000 ML IV SCH ×3 (00:17→08:34)
--- NOTE | 2017-08-12 00:33 | NUR ---
PATIENT ASLEEP IN BED. NO S/S OF DISTRESS NOTED. WILL CONTINUE TO MONITOR
[2017-08-12 04:00] VITALS: BP 168/82
[2017-08-12] MEDS: PIPER/TAZO 3.375GM/D5W PREMIX 50 ML IV SCH ×3 (05:00→21:04)
[2017-08-12] MEDS: MORPHINE SULFATE 4 MG/ML SYR IVP PRN ×4 (05:09→22:43)
[2017-08-12] MEDS: BLOOD GLUCOSE MONITORING 1 DEV DEV FS SCH ×4 (06:35→20:54)
[2017-08-12] MEDS: INSULIN LISPRO SLIDING SCALE 100 UNITS/ML VIAL SUBQ PRN ×4 (06:38→21:14)
[2017-08-12 07:15] LABS: HEMATOCRIT 34.8 % (36-52); HEMOGLOBIN 11.7 g/dL (12.0-18.0); LYMPHOCYTES # (AUTO) 0.3 K/uL (2.0-11.5); LYMPHOCYTES % (AUTO) 3.4 % (20.5-51.1); MEAN CORPUSCULAR HEMOGLOBIN 28 pg (27-31); MEAN CORPUSCULAR HGB CONC 34 g/dL (33-37); MEAN CORPUSCULAR VOLUME 83.1 fL (80-94); MONOCYTES # (AUTO) 0.9 K/uL (0.8-1.0); MONOCYTES % (AUTO) 8.7 % (1.7-9.3); NEUTROPHILS % (AUTO) 87.9 % (42.2-75.2); PLATELET COUNT (AUTO) 176 K/uL (140-450); RED BLOOD CELL COUNT(AUTO) 4.18 MIL/uL (4.20-6.10); RED CELL DISTRIBUTION WIDTH 13.5 % (11.6-13.7); WHITE BLOOD COUNT (AUTO) 10.2 K/uL (4.8-10.8)
[2017-08-12 07:27] LABS: ANION GAP 12.7 (8-16); CARBON DIOXIDE 23.2 mmol/L (21-32); CREATININE 0.7 mg/dL (0.7-1.3); POTASSIUM 3.9 mmol/L (3.5-5.1)
--- NOTE | 2017-08-12 07:27 | NUR ---
PATIENT REPORT GIVEN AT BEDSIDE. PATIENT ENDORSED IN STABLE CONDITION
--- NOTE | 2017-08-12 07:30 | NUR ---
RECEIVED BEDSIDE REPORT FROM PATROL CAPTAIN NURSE. PATIENT IS AWAKE, ALERT AND ORIENTEDX4. MS PATIENT. NO SIGNS OF DISTRESS ON ROOM AIR. STANDARD PRECAUTIONS IN PLACE. IV ON R AC 18G INFUSING LR AT 150ML/HR. IV IS CLEAN, DRY, AND INTACT. S/P LAP RAFI. INCISIONS HAS BANDAGES. ABD IS FLAT AND SOFT. ACTIVE BOWEL SOUNDS. TENDER TO TOUCH. NO COMPLAINTS OF PAIN AT THIS TIME. BED IN LOW POSITION. CALL LIGHT WITHIN REACH, WILL CONTINUE TO MONITOR THE PATIENT.
[2017-08-12 07:33] LABS: MAGNESIUM 2.2 mg/dL (1.8-2.4); PHOSPHORUS 1.8 mg/dL (2.5-4.9)
[2017-08-12 07:48] LABS: ALBUMIN 2.1 g/dL (3.4-5.0); BILIRUBIN,DIRECT 4.9 mg/dL (0.0-0.3); TOTAL BILIRUBIN 6.3 mg/dL (0.0-1.0)
[2017-08-12 08:00] VITALS: BP 162/85
[2017-08-12] MEDS: SODIUM PHOS / POTASSIUM PHOS 1 PKT PDR PO SCH ×4 (08:22→20:54)
[2017-08-12] MEDS: LACTOBACILLUS RHAMNOSUS GG 1 EACH CAP PO SCH (08:23)
[2017-08-12] MEDS: FERROUS SULFATE 325 MG TABEC PO SCH (08:24)
[2017-08-12] MEDS: CALCIUM CARB/VIT-D 500 MG/200 IU 1 TAB PO SCH ×2 (08:24→20:55)
[2017-08-12] MEDS: DOCUSATE SODIUM 100 MG GELCAP PO SCH ×2 (08:24→20:54)
[2017-08-12] MEDS: ASPIRIN 81 MG TAB.CHEW PO SCH (08:25)
[2017-08-12] MEDS: LISINOPRIL 10 MG TAB PO SCH (08:26)
[2017-08-12] MEDS: PANTOPRAZOLE 40 MG TABEC PO SCH (08:26)
[2017-08-12] MEDS: METOPROLOL 25 MG TAB PO SCH ×2 (08:26→20:55)
[2017-08-12] MEDS: SENNA 8.6 MG TAB PO SCH (08:33)
--- NOTE | 2017-08-12 08:46 | NUR ---
ADMINISTERED MORNING MEDS. PATIENT TOLERATED MEDS WELL. NO COMPLAINTS AT THIS TIME. WILL CONTINUE TO MONITOR THE PATIENT.
--- NOTE | 2017-08-12 09:37 | NUR ---
ADMINISTERED PRN PAIN MEDS. PATIENT TOLERATED WELL. IV IS CLEAN, DRY AND INTACT. DAUGHTER AND AT BEDSIDE. ANSWERED ALL QUESTIONS AT THIS TIME. WILL CONTINUE TO MONITOR THE PATIENT.
--- NOTE | 2017-08-12 10:10 | NUR ---
PATIENT WALKED AROUND THE HALLS WITH FAMILY. PATIENT TOLERATED WALK WELL. GAIT IS STEADY. WILL CONTINUE TO MONITOR THE PATIENT.
--- NOTE | 2017-08-12 10:20 | NUR ---
PATIENT BACK IN BED WITH FAMILY FROM WALK. PATIENT SHOWS NO SIGNS OF DISTRESS. BED IN LOW POSITION. CALL LIGHT WITHIN REACH. WILL CONTINUE TO MONITOR THE PATIENT.
[2017-08-12] MEDS ORDERED: SIMETHICONE 80 MG TAB.CHEW PO PRN (11:05)
[2017-08-12] MEDS: NACL 0.9% 1,000 ML IV SCH ×2 (11:44→21:14)
--- NOTE | 2017-08-12 12:16 | NUR ---
ADMINISTERED MEDS. PATIENT TOLERATED WELL. NO COMPLAINTS AT THIS TIME. BED IN LOW POSITION. CALL LIGHT WITHIN REACH. FAMILY AT BEDSIDE. WILL CONTINUE TO MONITOR THE PATIENT.
[2017-08-12] MEDS: HYDROcodone/APAP 7.5/325 MG 1 TAB PO PRN ×2 (12:23→21:32)
--- NOTE | 2017-08-12 13:19 | NUR ---
ADMINISTERED MED. PATIENT TOLERATING WELL. IV IS CLEAN, DRY AND INTACT. WILL CONTINUE TO MONITOR THE PATIENT.
--- NOTE | 2017-08-12 14:01 | NUR ---
PATIENT IS IN THE RESTROOM. AND DAUGHTER AT BEDSIDE. WILL CONTINUE TO MONITOR THE PATIENT.
--- NOTE | 2017-08-12 15:19 | NUR ---
PATIENT WALKING AROUND THE [place] WITH FAMILY. PATIENT IS TOLERATING WELL. GAIT IS STEADY. WILL CONTINUE TO MONITOR THE PATIENT.
[2017-08-12 16:00] VITALS: BP 147/67
--- NOTE | 2017-08-12 16:14 | NUR ---
ADMINISTERED PRN PAIN MED. PATIENT TOLERATED WELL. IV IS CLEAN, DRY AND INTACT. BED IN LOW POSITION. CALL LIGHT WITHIN REACH. WILL CONTINUE TO MONITOR THE PATIENT.
--- NOTE | 2017-08-12 17:12 | NUR ---
ADMINISTERED MEDS ORDERED. PATIENT TOLERATED MEDS WELL. BED IN LOW POSITION. CALL LIGHT WITHIN REACH. WILL CONTINUE TO MONITOR THE PATIENT.
--- NOTE | 2017-08-12 18:09 | NUR ---
PATIENT IS WITH FAMILY. PATIENT SHOWS NO SIGNS OF DISTRESS ON ROOM AIR. GAVE PATIENT PRUNE JUICE AND APPLE JUICE BECAUSE PATIENT HAS NOT HAD A BM FOR A WEEK. BED IN LOW POSITION. CALL LIGHT WITHIN REACH. WILL CONTINUE TO MONITOR THE PATIENT.
--- NOTE | 2017-08-12 19:20 | NUR ---
GAVE BEDSIDE REPORT TO JUDGE CLERK NURSE. PATIENT IS ENDORSED IN STABLE CONDITION.
--- NOTE | 2017-08-12 19:21 | NUR ---
RECEIVED BEDSIDE REPORT FROM DAY SHIFT NURSE DAYA RN, PT STABLE, NO DISTRESS NOTED, IV TO RAC 18G RUNNING NS @ 100 ML/HR, INFUSING WELL, PT ON ROOM AIR, NO SOB, INITIAL ASSESSMENT DONE, ALL SAFETY PRECAUTION MET, WILL CONTINUE TO MONITOR.
[2017-08-12] MEDS: ACETAMINOPHEN 325 MG TAB PO PRN (21:00)
--- NOTE | 2017-08-12 21:00 | NUR ---
PT TEMP 101.6, GAVE PT TYLENOL, PT TOLERATED WELL, PT STABLE, NO DISTRESS NOTED, CALL LIGHT WITHIN REACH, WILL RECHECKED PT TEMP IN ONE HOUR.
--- NOTE | 2017-08-12 21:32 | NUR ---
PT C/O PAIN 10/01, PAIN MEDICATION GIVEN, PT TOLERATED WELL, NO DISTRESS NOTED, [facility], WILL CONTINUE TO MONITOR.
--- NOTE | 2017-08-12 22:00 | NUR ---
RECHECKED PT TEMP 99.3, PT STABLE, NO DISTRESS NOTED, CALL LIGHT WITHIN REACH, WILL CONTINUE TO MONITOR.
--- NOTE | 2017-08-12 22:43 | NUR ---
PT STATED PAIN WAS NOT REDUCED WITH [place]CO, MORPHINE ORDERED GIVEN, PT TOLERATED WELL, NO DISTRESS NOTED, CALL LIGHT WITHIN REACH, WILL CONTINUE TO MONITOR.
--- NOTE | 2017-08-12 23:13 | NUR ---
CHECKED ON PT, PT SLEEPING, NO DISTRESS NOTED, CALL LIGHT WITHIN REACH, WILL CONTINUE TO MONITOR.
[2017-08-13] VITALS: BP 154/74
--- NOTE | 2017-08-13 01:02 | NUR ---
PT AMBULATED TO RESTROOM AND BACK TO BED, CHECKED ON PT IV, IT IS LEAKING, NEW IV INSERTED R FA 22G, OLD IV TAKEN OUT CATH INTACT, PT STABLE, NO DISTRESS NOTED, CALL LIGHT WITHIN REACH, WILL CONTINUE TO MONITOR.
[2017-08-13] MEDS: MORPHINE SULFATE 4 MG/ML SYR IVP PRN ×2 (02:55→08:24)
--- NOTE | 2017-08-13 02:55 | NUR ---
PT C/O PAIN 10/, PAIN MEDICATION GIVEN, PT TOLERATED WELL, NO DISTRESS NOTED, CALL LIGHT WITHIN REACH, WILL CONTINUE TO MONITOR.
[2017-08-13] MEDS: PIPER/TAZO 3.375GM/D5W PREMIX 50 ML IV SCH ×2 (05:10→13:12)
--- NOTE | 2017-08-13 05:10 | NUR ---
CHECKED ON PT, PT SLEEPING, NO DISTRESS NOTED, CALL LIGHT WITHIN REACH, WILL CONTINUE TO MONITOR.
[2017-08-13] MEDS: BLOOD GLUCOSE MONITORING 1 DEV DEV FS SCH ×2 (06:00→11:50)
[2017-08-13] MEDS: INSULIN LISPRO SLIDING SCALE 100 UNITS/ML VIAL SUBQ PRN ×2 (06:01→12:26)
[2017-08-13] MEDS: NACL 0.9% 1,000 ML IV SCH (06:05)
--- NOTE | 2017-08-13 07:13 | NUR ---
ENDORSED PLAN OF CARE TO DAY SHIFT NURSE DAYA RN, FOR CONTINUOUS OF CARE, PT STABLE, NO DISTRESS NOTED, CALL LIGHT WITHIN REACH.
--- NOTE | 2017-08-13 07:15 | NUR ---
RECEIVED BEDSIDE REPORT FROM SEED AND FERTILIZER SPECIALIST NURSE. PATIENT IS AWAKE, ALERT AND ORIENTEDX4. SO SIGNS OF DISTRESS ON ROOM AIR. PATIENT IS AMBULATORY. IV ON R FA 22G INFUSING NS AT 100ML/HR. IV IS CLEAN, DRY AND INTACT. SKIN IS S/P LAP RAFI. SKIN IS CLEAN, DRY AND INTACT. BED IN LOW POSITION. CALL LIGHT WITHIN REACH. WILL CONTINUE TO MONITOR THE PATIENT.
[2017-08-13 08:00] VITALS: BP 167/90
[2017-08-13 08:15] LABS: BASOPHILS % (AUTO) 0.2 % (0.0-2.0); EOSINOPHILS % (AUTO) 0.2 % (0.0-4.0); HEMATOCRIT 36.6 % (36-52); HEMOGLOBIN 12.2 g/dL (12.0-18.0); LYMPHOCYTES # (AUTO) 0.5 K/uL (2.0-11.5); LYMPHOCYTES % (AUTO) 4.3 % (20.5-51.1); MEAN CORPUSCULAR HEMOGLOBIN 28 pg (27-31); MEAN CORPUSCULAR HGB CONC 33 g/dL (33-37); MEAN CORPUSCULAR VOLUME 83.7 fL (80-94); MONOCYTES # (AUTO) 1.1 K/uL (0.8-1.0); MONOCYTES % (AUTO) 8.9 % (1.7-9.3); NEUTROPHILS % (AUTO) 86.4 % (42.2-75.2); PLATELET COUNT (AUTO) 205 K/uL (140-450); RED BLOOD CELL COUNT(AUTO) 4.37 MIL/uL (4.20-6.10); RED CELL DISTRIBUTION WIDTH 13.7 % (11.6-13.7); WHITE BLOOD COUNT (AUTO) 12.8 K/uL (4.8-10.8)
[2017-08-13] MEDS: SODIUM PHOS / POTASSIUM PHOS 1 PKT PDR PO SCH ×2 (08:21→12:19)
[2017-08-13] MEDS: METOPROLOL 25 MG TAB PO SCH (08:22)
[2017-08-13] MEDS: LACTOBACILLUS RHAMNOSUS GG 1 EACH CAP PO SCH (08:22)
[2017-08-13] MEDS: ASPIRIN 81 MG TAB.CHEW PO SCH (08:23)
[2017-08-13] MEDS: LISINOPRIL 10 MG TAB PO SCH (08:23)
[2017-08-13] MEDS: SENNA 8.6 MG TAB PO SCH (08:23)
[2017-08-13] MEDS: DOCUSATE SODIUM 100 MG GELCAP PO SCH (08:23)
[2017-08-13] MEDS: PANTOPRAZOLE 40 MG TABEC PO SCH (08:23)
[2017-08-13] MEDS: CALCIUM CARB/VIT-D 500 MG/200 IU 1 TAB PO SCH (08:23)
[2017-08-13] MEDS: FERROUS SULFATE 325 MG TABEC PO SCH (08:24)
--- NOTE | 2017-08-13 08:43 | NUR ---
ADMINISTERED MORNING MEDS ORDERED. PATIENT TOLERATED WELL. IV IS CLEAN, DRY AND INTACT. FAMILY AT BEDSIDE. BED IN LOW POSITION. CALL LIGHT WITHIN REACH, WILL CONTINUE TO MONITOR THE PATIENT.
[2017-08-13 08:49] LABS: ANION GAP 9.8 (8-16); CARBON DIOXIDE 26.2 mmol/L (21-32); CREATININE 0.8 mg/dL (0.7-1.3)
[2017-08-13 08:59] LABS: MAGNESIUM 2.2 mg/dL (1.8-2.4); PHOSPHORUS 1.6 mg/dL (2.5-4.9)
--- NOTE | 2017-08-13 10:47 | NUR ---
PATIENT IS SLEEPING. NO SIGNS OF DISTRESS ON ROOM AIR. AT BEDSIDE. CALL LIGHT WITHIN REACH. WILL CONTINUE TO MONITOR THE PATIENT
--- NOTE | 2017-08-13 12:36 | NUR ---
PATIENT AMBULATED TO THE RESTROOM. IV WAS REMOVED. WILL PLACE A NEW IV.
--- NOTE | 2017-08-13 12:40 | NUR ---
NEW IV ON R AC 22G. CLEAN, DRY AND INTACT.
[2017-08-13] MEDS: HYDROcodone/APAP 7.5/325 MG 1 TAB PO PRN (13:13)
[2017-08-13] MEDS ORDERED: ACET-9529 PO (13:48)
--- NOTE | 2017-08-13 14:31 | NUR ---
PATIENT WITH FAMILY AT BEDSIDE. NO SIGNS OF DISTRESS ON ROOM AIR. BED IN LOW POSITION. CALL LIGHT WITHIN REACH. WILL CONTINUE TO MONITOR THE PATIENT.
--- NOTE | 2017-08-13 15:30 | NUR ---
REMOVED PATIENTS IV, REMOVED ID BANDS. EDUCATED PATIENT ON ABNORMAL S/SX AND TO GO TO ER IF ABN S/SX OCCUR, EDUCATED ON DISEASE PROCESS, HOW TO CARE FOR SURGICAL SITES, GAVE OFF WORK NOTICE, GAVE PRESCRIPTION. PATIENT SIGNED AND VERBALIZED UNDERSTANDING. PATIENT WILL DRESS UP AND GET READY TO LEAVE. WILL GET WHEEL CHAIR.
--- NOTE | 2017-08-13 15:45 | NUR ---
WHEELED PATIENT OUT IN WHEELCHAIR . PATIENT LEFT IN STABLE CONDITION WITH DAUGHTER AND .
== END 2017-08-13 15:45 | disposition home or self-care (01) | DRG 263 ==
LOC: MED 18:38 → MTU 21:57
PROVIDERS: ADMIT Family Medicine Sports Medicine; ATTEND Family Medicine Sports Medicine
PROC: BF101ZZ Fluoroscopy of Bile Ducts using Low Osmolar Contrast (ICD-10-PCS; 2017-08-09)
PROC: 0F798ZZ Dilation of Common Bile Duct, Via Natural or Artificial Opening Endoscopic (ICD-10-PCS; principal; 2017-08-09 15:20)
PROC: 0FT44ZZ Resection of Gallbladder, Percutaneous Endoscopic Approach (ICD-10-PCS; 2017-08-11)
DX: K85.10 Biliary acute pancreatitis without necrosis or infection (principal); N17.0 Acute kidney failure with tubular necrosis; R65.11 Systemic inflammatory response syndrome (SIRS) of non-infectious origin with acute organ dysfunction; D68.59 Other primary thrombophilia; E11.51 Type 2 diabetes mellitus with diabetic peripheral angiopathy without gangrene; E11.22 Type 2 diabetes mellitus with diabetic chronic kidney disease; E11.65 Type 2 diabetes mellitus with hyperglycemia; E83.42 Hypomagnesemia; E83.51 Hypocalcemia; K21.9 Gastro-esophageal reflux disease without esophagitis; R74.0 Nonspecific elevation of levels of transaminase and lactic acid dehydrogenase [LDH]; E83.39 Other disorders of phosphorus metabolism; K29.70 Gastritis, unspecified, without bleeding; I12.9 Hypertensive chronic kidney disease with stage 1 through stage 4 chronic kidney disease, or unspecified chronic kidney disease; I25.10 Atherosclerotic heart disease of native coronary artery without angina pectoris; Z86.73 Personal history of transient ischemic attack (TIA), and cerebral infarction without residual deficits; Z79.4 Long term (current) use of insulin; Z87.81 Personal history of (healed) traumatic fracture; R94.5 Abnormal results of liver function studies; K80.20 Calculus of gallbladder without cholecystitis without obstruction
CPT/HCPCS: 36415; 71045; 76705; 80048; 80053; 80076; 80305; 81001; 82150; 82374; 82948; 83036; 83690; 83735; 83880; 84100; 84439; 84443; 84484; 85025; 85610; 85730; 86140; 86886; 86900; 86901; 87081; 93005; 93925; 93970; 96361; 96372; 96374; 99285; J0330; J1100; J1815; J1885; J2001; J2250; J2270; J2543; J2704; J2710; J3010; J3490; J7030; J7060; J7120; Q0092

== ENCOUNTER 2021-11-26 08:57 | Emergency (ER) | payer BC, MEDICAID ==
[~2021-11-26] VITALS: Ht 175.3 cm; Wt 69.9 kg
[~2021-11-26 08:57] MED LIST: ACET-9529 PO; ASPI-1822 PO; ATOR10TA PO; ESOM40EC PO; FERR325E14 PO; GLIP5TAB14 PO; LISI-486 PO; ONDA8TAB87 PO
[2021-11-26 09:03] VITALS: BP 159/73
--- NOTE | 2021-11-26 09:10 | NUR ---
pt ambulated to bed 08 at this time
--- NOTE | 2021-11-26 09:12 | NUR ---
pt ambulated to bathroom at this time, urine specimen cup given
--- NOTE | 2021-11-26 09:12 | NUR ---
61 y/o male, pt presents to ed with c/o low back pain radiates to right hip and bl feet for 1 week, denies any recent injury, fall or overexertion. pt states he has also been having burning, dysuria on and off. skin is pink/warm/dry. a&o x4 with even and steady gait. lungs clear bl, heart rate even and regular. pt denies any fever, cp, sob, or cough at this time. pt states pain is 7/10 at this time. vss. patient positioned for comfort. hob elevated. bed down. ermd made aware of pt. pmh: dm2 nka med: metformin
[2021-11-26] MEDS ORDERED: LIDO1ADH47 TP (09:31)
[2021-11-26] MEDS ORDERED: NAPR-54 PO (09:31)
--- NOTE | 2021-11-26 09:39 | NUR ---
Patient discharged with v/s stable. Written and verbal after care instructions FOR SCIATICA AND LUMBAR STRAIN given and explained. Patient alert, oriented and verbalized understanding of instructions. Ambulatory with steady gait. All questions addressed prior to discharge. ID band removed. Patient advised to follow up with PMD. Rx of LIDOCAINE AND NAPROXEN given. Opportunity to ask questions provided and answered. NO NURSING CARE RENDERED
== END 2021-11-26 09:39 | disposition home or self-care (01) ==
LOC: MED 08:57
DX: S39.012A Strain of muscle, fascia and tendon of lower back, initial encounter (principal); M54.41 Lumbago with sciatica, right side; X50.0XXA Overexertion from strenuous movement or load, initial encounter; Y93.89 Activity, other specified; Y92.89 Other specified places as the place of occurrence of the external cause; Y99.0 Civilian activity done for income or pay
CPT/HCPCS: 99283